=== PATIENT | male | born 1955 | race Caucasian/White ===

== ENCOUNTER → 2022-06-25 | Outpatient (CLI) | payer OTHER ==
[~2022-06-25] MED LIST: ALPR.25 PO; ASPI81EC PO; BENZ100A PO; CEFU250 PO; CLIN300 PO; CLON.5 PO; CODACE30 PO; CYCL10 PO; DICYCLOMINE 20 MG; DIPATR PO; DOXY100 PO; EZET10 PO; FAMO40 PO; FENO67; GLIM2; LEVFLO500 PO; LISI10; LISI20 PO; LISI5 PO; LITH300C; LITH300C PO; LITH300CA; LITH300ER PO; METF500; METF500 PO; METO10 PO; METO5A PO; NAPR500 PO; NAPR550 PO; NATE60 PO; OMEP20ER; OMEP40CA12 PO; ONDA4ODT MM; OXYACE5T PO; PROM25 PO; RANI150 PO; RISP.5; RXCODACET PO; RXCYCL10 PO; RXDIPATR PO; RXNAPNA550 PO; RXONDA4ODT MM; SITA100T2 PO; SULI150 PO; TRADJENTA; TRAM50 PO; TRAZ50 PO; [UNRECOGNIZED DRUG - OTHER]; ferrous gluconate
[2022-06-25 14:06] LABS: Alanine Aminotransfer (ALT/SGP 34 U/L (12-78); Albumin, Blood 3.4 g/dL (3.4-5.0); Albumin/Globulin Ratio 0.8 (0.8-1.8); Alk Phos 148 U/L (50-136); Anion Gap 6 mmol/L (6-16); Aspartate Aminotrans (AST/SGOT 17 U/L (12-37); Bilirubin, Total 0.3 mg/dL (0.1-1.0); Blood Urea Nitrogen 35 mg/dL (8-24); Bun/Creatinine Ratio 21.5 (12.0-20.0); CHOL/HDL RATIO 6.2; CO2, Blood 24 mmol/L (21-32); Calcium, Blood 9.9 mg/dL (8.5-10.1); Chloride, Blood 104 mmol/L (98-108); Cholesterol 250 mg/dL (50-200); Creatinine, Blood 1.63 mg/dL (0.60-1.20); Glomerular Filtration Rate 47 (60-); Glucose, Blood 249 mg/dL (70-99); HDL Cholesterol 40 mg/dL (>39); LDL/HDL RATIO Unable to Calculate; Low Density Lipoprotein Chol Unable to Calculate mg/dL (0-110); Potassium, Blood 4.2 mmol/L (3.5-5.5); Sodium, Blood 134 mmol/L (136-145); Total Protein, Blood 7.4 g/dL (6.4-8.2); Triglycerides 495 mg/dL (30-160); Very Low Density Lipoprot Chol Unable to Calculate mg/dL (6-32)
== END | disposition home or self-care (01) ==
LOC: LAB SHORT 12:58
PROVIDERS: Family Medicine
DX: F31.9 Bipolar disorder, unspecified (principal); I10 Essential (primary) hypertension
CPT/HCPCS: 80053; 80061; 80178; 84443